=== PATIENT | female | born 1990 | race Caucasian/White ===

== ENCOUNTER 2017-03-14 00:40 | Inpatient (IN) | payer OTHER ==
[2017-03-14] MEDS: DEXTROSE 5%-LACTATED RINGERS 1,000 ML IV SCH (01:00)
[2017-03-14] MEDS: OXYTOCIN 20 UNITS in 0.9% NS 1,000 ML IV SCH (02:15)
--- NOTE | 2017-03-14 02:38 | PN ---
Delivery - Delivery Vaginal Delivery: No Problems Type of Anesthesia: Local Episiotomy/Laceration: 2nd degree EBL (cc): 300 Delivery, Single - Stages of Labor Placenta: Yes: Spontaneous - Condition of Activated Sludge Attendant/Critical Care Registered Nurse Present: No Infant Gender: Female Position: Left, OA - 1 Minute Total Score: 9 5 Minutes Total Score: 9 Remarks - Remarks Remarks: Pt fully dilated and pushing delivered viable female infant from VIOLET cephalic presentation over intact perineum. No nuchal cord. Anterior shoulder and body followed spontaneously and without difficulty. Placenta delivered intact with 3vc. 2nd degree perineal laceration repaired with 2.0 vicryl with excellent hemostasis and gnosticism of anatomy. Fundus firm. Vault empty. Mother stable. Baby to n
--- NOTE | 2017-03-14 02:43 | HP ---
Past Medical History - Admission Chief Complaint: contractions History of Present Illness: 26yo LMP 06/05/16 EDC 03/12/17 by LMP SIUP at 40 2/7 weeks gestation presents with c/o contractions. PNC at [facility] care significant for abnormal pap, s/ p colposcopy and quantiferon positive. Pt B+/RI/RPR NR/Hep BsAg negative/HIV negative/GBS negative. 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: Alzheimer's, CVA, Dementia, Migraine, Multiple Sclerosis, Peripheral Neuropathy, Parkinson's, Seizure, Syncope, TIA, Vertigo, Other Cardiovascular: No: AFIB, Aneurysm, Aortic Insufficiency, Aortic Stenosis, CAD, CHF, Deep Vein Thrombosis, HTN, Hyperlipdemia, IA, Mitral Insufficiency, Mitral Stenosis, Murmur, Pulmonary Hypertension, Other Pulmonary: No: Asthma, Bronchitis, Cancer, COPD, O2 Dependent, Pneumonia, Previously Intubated, Pulmonary Embolus, Pulmonary Fibrosis, Sleep Apnea, Other Gastrointestinal: No: Ascites, Cancer, Constipation, Crohn's Disease, Diverticulitis, Diverticulosis, Esophageal Varices, Gastritis, GERD, GI Bleed, Hemorrhoids, Hiatal Hernia, Inflamatory Bowel Disease, Irritable Bowel Disease, Pancreatitis, Peptic Ulcer Disease, Ulcerative Colitis, Other Hepatobiliary: No: Cirrhosis, Cholelithiasis, Cholecystitis, Choledocholithiasis , Hepatitis A, Hepatitis B, Hepatitis C, Other Renal/: No: Renal Failure, Renal Inusuff, BPH, Cancer, Hematuria, Hemodialysis , Neurogenic Bladder, Renal Calculi, UTI, Other ...: 2 ...Para: 1 ...Term: 1 ...: 0 ...Spon : 0 ...Induced : 0 ...Multiple Gestation: 0 ...LMP: 06/05/16 ... Weeks Gestation by Dates: 40.2 ...EDC by Dates: 03/12/17 ...EDC by Sono: 03/06/17 Heme/Onc: No: Anemia, B12 Deficiency, Bleeding Disorder, Cancer, Current Chemotherapy, Current Radiation Therapy, Hemochromatosis, Hypercoaguable State, Myeloproliferative Synd, Sickle Cell Disease, Sickle Cell Trait, Thrombocytopenia, Other Infectious Disease: No: AIDS, C-Diff, Herpes Zoster, HIV, MRSA, STD's, Tuberculosis, VREF, Other Psych: No: Addictions, Anxiety, Bipolar, Depression, Panic, Psychosis, Schizophrenia, Other Musculoskeletal: No: Bursitis, Chronic low back pain, Hemiparesis, Hemiplegia, Osteoarthritis, Paraplegia, Other Rheumatology: No: Fibromyalgia, Gout, Lupus, Rheumatoid Arthritis, Sarcoidosis, Vasculitis, Other ENT: No: Allergic Rhinitis, Sinusitis, Other - Past Surgical History Past Surgical History: Yes: None Hx Myomectomy: No Hx Transabdominal Cerclage: No - Smoking History Smoking history: Never smoked - Alcohol/Substance Use Hx Alcohol Use: No History of Substance Use: reports: None - Social History ADL: Independent History of Recent Travel: No Home Medications - Allergies Allergies/Adverse Reactions: Allergies Allergy/AdvReac Type Severity Reaction Status Date / Time No Known Allergies Allergy Verified 09/24/11 07:17 - Home Medications Home Medications: Ambulatory Orders Nitrofurantoin Monohyd/M-Cryst [Macrobid -] 100 mg PO BID #14 capsule 03/13/16 Family Disease History - Family Disease History Family History: Denies Review of Systems - Review of Systems Constitutional: reports: No Symptoms Eyes: reports: No Symptoms HENT: reports: No Symptoms Neck: reports: No Symptoms Cardiovascular: reports: No Symptoms Respiratory: reports: No Symptoms Gastrointestinal: reports: No Symptoms Genitourinary: reports: Pain Breasts: reports: No Symptoms Reported Musculoskeletal: reports: No Symptoms Integumentary: reports: No Symptoms Neurological: reports: No Symptoms Endocrine: reports: No Symptoms Hematology/Lymphatic: reports: No Symptoms Psychiatric: reports: No Symptoms Physical Exam - Maternity Constitutional: Yes: Well Nourished Eyes: Yes: WNL HENT: Yes: WNL Neck: Yes: WNL - Abdominal Exam/OB Fundal Height: 40 Number of Fetuses: Single Presentation: Vertex Contractions: Yes Regularity: Regular Intensity: Strong Monitor Mode: External Heart Rate (range): 135 Category: II Accelerations: Uniform Decelerations: Variable - Vaginal Exam/OB Vaginal Bleediing: No Dilatation (cm): 10cm Effacement (%): 100 Amniotic Membrane Status: Ruptured Amniotic Fluid: Yes: Meconium Stained Meconium: Thick Presentation: Vertex/Position Station: +1 - Physical Exam Musculoskeletal: Yes: WNL Extremities: Yes: WNL Psychiatric: Yes: WNL Hemorrhage Risk Assessment - Risk Factors Medium Risk Factors: Yes: None High Risk Factors: Yes: None Risk Score: 1 Risk Level: Medium Risk Problem List - Problems (1) Labor and delivery indication for care or intervention Assessment/Plan: 26yo at 40.2 weeks in active labor admit to labor and delivery pain management as needed anticipate Dr. Mantilla Code(s): O75.9 - COMPLICATION OF LABOR AND DELIVERY, UNSPECIFIED
--- NOTE | 2017-03-14 02:48 | DS ---
Physical Exam-PATHOLOGY SECRETARY/TRANSCRIPTIONIST Constitutional: Yes: Well Nourished, No Distress, Calm Eyes: Yes: WNL, Conjunctiva Clear, EOM Intact HENT: Yes: WNL, Atraumatic, Normocephalic Neck: Yes: WNL, Supple, Trachea Midline Cardiovascular: Yes: WNL, Regular Rate and Rhythm Respiratory: Yes: WNL, Regular, CTA Bilaterally Gastrointestinal: Yes: WNL ...Rectal Exam: Yes: WNL Renal/: Yes: WNL Breast(s): Yes: WNL Musculoskeletal: Yes: WNL Extremities: Yes: WNL Integumentary: Yes: WNL Neurological: Yes: WNL, Alert, Oriented ...Motor Strength: WNL Psychiatric: Yes: WNL, Alert, Oriented Delivery - Delivery Vaginal Delivery: No Problems Type of Anesthesia: Local Episiotomy/Laceration: 2nd degree EBL (cc): 300 Delivery, Single - Stages of Labor Placenta: Yes: Spontaneous - Condition of Infant Radiology Aide/Silk Screen Printer Present: No Gender: Female Position: Left, OA - 1 Minute Total Score: 9 5 Minutes Total Score: 9 Discharge Summary Reason For Visit: LABOR Current Active Problems Labor and delivery indication for care or intervention (Acute) - Home Medications Comprehensive Discharge Medication List: Ambulatory Orders Nitrofurantoin Monohyd/M-Cryst [Macrobid -] 100 mg PO BID #14 capsule 03/13/16
[2017-03-14] MEDS ORDERED: METHYLERGONOVINE MALEATE 0.2 MG/1 ML AMP IM PRN (02:51)
[2017-03-14] MEDS ORDERED: BENZOCAINE 28 GM HEMORRHOIDAL OINTMENT TP PRN (02:51)
[2017-03-14] MEDS ORDERED: BISACODYL 10 MG SUPP.RECT RC PRN (02:51)
[2017-03-14] MEDS ORDERED: oxyCODONE HCL 5 MG TABLET PO PRN (02:51)
[2017-03-14] MEDS ORDERED: WITCH HAZEL 50% (TUCKS) 40 PAD/JAR PAD TP PRN (02:51)
[2017-03-14] MEDS ORDERED: BENZOCAINE 20% 57 GM BOTTLE TP PRN (02:51)
[2017-03-14 03:09] VITALS: BMI 30.9
[2017-03-14 03:58] LABS: BASOPHIL 0.4 % (0-2.0); EOSINOPHIL 1.2 % (0-4.5); MCH 30.4 pg (25.7-33.7); MCHC 33.8 g/dl (32.0-36.0); MEAN PLT VOLUME 7.7 fl (7.5-11.1); NEUTROPHILS 64.3 % (42.8-82.8); PLATELET COUNT 182 K/MM3 (134-434); WHITE BLOOD COUNT 9.9 K/mm3 (4.0-10.0)
[2017-03-14 04:19] LABS: ANION GAP 12 (8-16); CALCIUM 8.2 mg/dL (8.5-10.1); CO2 23 mmol/L (21-32); CREATININE 0.5 mg/dL (0.55-1.02); GLUCOSE,RANDOM 102 mg/dL (74-106)
[2017-03-14] MEDS: IBUPROFEN 600 MG TABLET (FP) PO PRN ×2 (04:38→18:12)
[2017-03-14 04:39] LABS: INR 0.96 (0.82-1.09); PROTHROMBIN TIME (PATIENT) 10.9 SEC (9.98-11.88)
[2017-03-14] MEDS: ACETAMINOPHEN 325 MG TABLET (FP) PO PRN ×2 (04:39→18:13)
[2017-03-14 04:42] LABS: ACTIVATED PTT 22.9 SECONDS (26.9-34.4)
--- NOTE | 2017-03-15 08:26 | PN ---
Progress Note (short form) - Note Progress Note: ppd 1 doing well, no c/o CBC, BMP 03/14/17 03:30 Last Vital Signs Temp Pulse Resp BP Pulse Ox 98.7 F 84 18 117/86 03/14/17 22:12 03/14/17 22:12 03/14/17 22:12 03/14/17 22:12 abdomen soft, no distension, no cva uterus firm lochia mild plan ambulate, cbc, d/c home in am
[2017-03-15 08:39] LABS: BASOPHIL 0.3 % (0-2.0); EOSINOPHIL 1.3 % (0-4.5); MCH 29.5 pg (25.7-33.7); MCHC 33.1 g/dl (32.0-36.0); MEAN CELL VOLUME 89.1 fl (80-96); MEAN PLT VOLUME 7.1 fl (7.5-11.1); NEUTROPHILS 68.8 % (42.8-82.8); PLATELET COUNT 143 K/MM3 (134-434); WHITE BLOOD COUNT 11.3 K/mm3 (4.0-10.0)
[2017-03-15] MEDS: ACETAMINOPHEN 325 MG TABLET (FP) PO PRN (14:27)
[2017-03-15] MEDS: IBUPROFEN 600 MG TABLET (FP) PO PRN (14:27)
[2017-03-15] MEDS: OXYTOCIN 20 UNITS in 0.9% NS 1,000 ML IV SCH (17:36)
[2017-03-15] MEDS: DEXTROSE 5%-LACTATED RINGERS 1,000 ML IV SCH (17:36)
[2017-03-15] MEDS ORDERED: SENNOSIDES/DOCUSATE COMBO (SENNA PLUS) TABLET (UD) PO PRN (22:00)
[2017-03-16 08:34] VITALS: BP 116/68; PULSE 65; TEMP 98.4
--- NOTE | 2017-03-16 09:11 | DS ---
Physical Exam-CLIENT TECHNICAL SUPPORT ASSOCIATE Vital Signs: Vital Signs Temperature 98.4 F 03/16/17 08:32 Pulse Rate 65 03/16/17 08:32 Respiratory Rate 20 03/16/17 08:32 Blood Pressure 116/68 03/16/17 08:32 O2 Sat by Pulse Oximetry (%) Constitutional: Yes: Well Nourished, No Distress, Calm Eyes: Yes: WNL, Conjunctiva Clear, EOM Intact HENT: Yes: WNL, Atraumatic, Normocephalic Neck: Yes: WNL, Supple, Trachea Midline Cardiovascular: Yes: WNL, Regular Rate and Rhythm Respiratory: Yes: WNL, Regular, CTA Bilaterally Gastrointestinal: Yes: WNL ...Rectal Exam: Yes: WNL Renal/: Yes: WNL ....Post : Yes: Uterus firm, Uterus non-tender, Slight lochia rubra Breast(s): Yes: WNL Musculoskeletal: Yes: WNL Extremities: Yes: WNL Integumentary: Yes: WNL Neurological: Yes: WNL, Alert, Oriented ...Motor Strength: WNL Psychiatric: Yes: WNL, Alert, Oriented Labs: CBC, BMP 03/15/17 07:00 03/14/17 03:30 Delivery - Delivery Vaginal Delivery: No Problems, Spontaneous Type of Anesthesia: Local Episiotomy/Laceration: 2nd degree EBL (cc): 300 Delivery, Single - Stages of Labor Date 1st Stage Initiatied: 03/13/17 Time 1st Stage Initiated: 23:45 Date 2nd Stage Initiated: 03/14/17 Time 2nd Stage Initiated: 01:45 Date of Delivery: 03/14/17 Time of Delivery: 02:03 Time Placenta Delivered: 02:10 Placenta: Yes: Spontaneous - Condition of Infant Waste Paper Hammermill Operator/Basketball Player Present: No Gender: Female Weight: 6 lb 15 oz Position: Left, OA Total Hours ROM (Hrs/Mins): 33MIN - 1 Minute Total Score: 9 5 Minutes Total Score: 9 - Delta Feeding Plan Initial Plan: Exclusive throughout hospitalization Discharge Summary Reason For Visit: LABOR Current Active Problems Labor and delivery indication for care or intervention (Acute) Procedures: Principal: Condition: Good - Instructions Diet, Activity, Other Instructions: regular diet, follow up [facility] care 4 weeks call [facility] for appointment. [phone] Referrals: Devorah Mantilla MD [Staff Physician] - Disposition: HOME - Home Medications Comprehensive Discharge Medication List: Ambulatory Orders Ibuprofen [Motrin -] 600 mg PO QID #28 tablet 03/14/17 Vit/Iron Fumarate/FA [ Tablet] 1 tab PO DAILY 03/14/17
[2017-03-16] MEDS: IBUPROFEN 600 MG TABLET (FP) PO PRN (09:22)
[2017-03-16] MEDS: ACETAMINOPHEN 325 MG TABLET (FP) PO PRN (09:22)
[2017-03-16] MEDS: DEXTROSE 5%-LACTATED RINGERS 1,000 ML IV SCH (09:25)
[2017-03-16] MEDS: OXYTOCIN 20 UNITS in 0.9% NS 1,000 ML IV SCH (09:25)
== END 2017-03-16 11:40 | disposition home or self-care (01) | DRG 560 ==
LOC: JLDR 00:40 → J3W 04:15
PROVIDERS: ADMIT Obstetrics & Gynecology; ATTEND Obstetrics & Gynecology
PROC: 10E0XZZ Delivery of Products of Conception, External Approach (ICD-10-PCS; principal; 2017-03-14)
PROC: 0KQM0ZZ Repair Perineum Muscle, Open Approach (ICD-10-PCS; 2017-03-14)
DX: O48.0 Post-term pregnancy (principal); O70.1 Second degree perineal laceration during delivery; Z3A.40 40 weeks gestation of pregnancy; Z37.0 Single live birth
CPT/HCPCS: 36415; 59409; 71010-TC; 80048; 85025; 85610; 85730; 86593; 86850; 86900; 86901

== ENCOUNTER 2019-07-08 08:56 | Emergency (ER) | payer OTHER ==
[2019-07-08 09:14] VITALS: BP 109/71; PULSE 73; TEMP 98; BMI 25.4
--- NOTE | 2019-07-08 10:13 | PDOC ---
History of Present Illness - General Chief Complaint: Respiratory Stated Complaint: CONGESTED/SOB Time Seen by Provider: 07/08/19 09:55 History Source: Patient - History of Present Illness Timing/Duration: reports: yesterday Associated Symptoms: reports: cough, fever/chills. denies: shortness of breath Past History - Past Medical History Allergies/Adverse Reactions: Allergies Allergy/AdvReac Type Severity Reaction Status Date / Time No Known Allergies Allergy Verified 07/08/19 09:14 Home Medications: Ambulatory Orders Ibuprofen [Motrin -] 600 mg PO QID #28 tablet 03/14/17 Vit/Iron Fum/Folic AC [ Tablet] 1 tab PO DAILY 03/14/17 Asthma: No Cancer: No Cardiac Disorders: No COPD: No Diabetes: No HTN: No Seizures: No Thyroid Disease: No - Psycho Social/Smoking Cessation Hx Smoking History: Never smoked Have you smoked in the past 12 months: No Hx Alcohol Use: No Drug/Substance Use Hx: No Substance Use Type: None Hx Substance Use Treatment: No Review of Systems - Review of Systems Constitutional: Yes: Fever Respiratory: Yes: Cough. No: Shortness of Breath, Wheezing *Physical Exam - Vital Signs Last Vital Signs Temp Pulse Resp BP Pulse Ox 98.0 F 73 16 109/71 96 07/08/19 09:12 07/08/19 09:12 07/08/19 09:12 07/08/19 09:12 07/08/19 09:12 - Physical Exam General Appearance: Yes: Appropriately Dressed. No: Apparent Distress HEENT: positive: Normal ENT Inspection, Normal Voice, TMs Normal, Pharynx Normal. negative: Scleral Icterus (R), Scleral Icterus (L) Neck: positive: Supple. negative: Lymphadenopathy (R), Lymphadenopathy (L) Respiratory/Chest: positive: Lungs Clear, Normal Breath Sounds. negative: Respiratory Distress Cardiovascular: positive: Regular Rate, S1, S2 Integumentary: positive: Dry, Warm Neurologic: positive: Fully Oriented, Alert, Normal Mood/Affect Heart Score/ECG Review - ECG Intrepretation Comment:: 07/08/19 10:14 Twelve-lead EKG was performed and reviewed by me. There is normal sinus rhythm with a normal rate. The axis is normal. The intervals are normal. There are no ST or T wave abnormalities. Impression: Normal twelve-lead EKG Medical Decision Making - Medical Decision Making 07/08/19 10:13 28-year-old female ,no significant history, here with URI symptoms with cough and subjective fever. At some point started having some chest tightness with cough. No hemoptysis, shortness of breath. No history of pneumonia. No tobacco use see exam URI w/ pleuritic CP Exam wnl EKG done from triage and unremarkable Dc w/ supportive tc Discharge - Discharge Information Problems reviewed: Yes Clinical Impression/Diagnosis: URI (upper respiratory infection) Qualifiers: URI type: unspecified viral URI Qualified Code(s): J06.9 - Acute upper respiratory infection, unspecified Condition: Good Disposition: HOME - Follow up/Referral Referrals: Phan Carrasco MD [Primary Care Provider] - - Patient Discharge Instructions Patient Printed Discharge Instructions: DI for Viral Upper Respiratory Infection -- Adult - Post Discharge Activity Work/Back to School Note: Back to Work
--- NOTE | 2019-07-08 13:22 | EKG ---
Test Reason : Blood Pressure : / mmHG Vent. Rate : 072 BPM Atrial Rate : 072 BPM P-R Int : 152 ms QRS Dur : 064 ms QT Int : 382 ms P-R-T Axes : 056 065 036 degrees QTc Int : 418 ms NORMAL SINUS RHYTHM WITH SINUS ARRHYTHMIA POSSIBLE LEFT ATRIAL ENLARGEMENT BORDERLINE ECG NO PREVIOUS ECGS AVAILABLE Confirmed by MD Feliciano, Phan ([id number]) on 07/08/2019 1:22:05 PM Referred By: Confirmed By:Phan Wiggins MD
== END 2019-07-08 10:19 | disposition home or self-care (01) ==
LOC: JERFT 08:56 → JER 08:56 → JERFT 10:19
DX: J06.9 Acute upper respiratory infection, unspecified (principal)
CPT/HCPCS: 93005; 93010; 99283-25

== ENCOUNTER 2020-01-18 22:01 | Emergency (ER) | payer OTHER ==
[2020-01-18 22:07] VITALS: BP 112/74; PULSE 94; TEMP 98.7; BMI 25.4
--- NOTE | 2020-01-18 23:17 | PDOC ---
*Physical Exam - Vital Signs Last Vital Signs Temp Pulse Resp BP Pulse Ox 98.7 F 94 H 18 112/74 99 01/18/20 22:03 01/18/20 22:03 01/18/20 22:03 01/18/20 22:03 01/18/20 22:03 Medical Decision Making - Medical Decision Making 01/18/20 23:17 Patient seen by the advanced practice provider under my supervision. Ancillary testing reviewed as necessary. I agree with plan as outlined by the advanced practice provider. Discharge - Discharge Information Problems reviewed: Yes Clinical Impression/Diagnosis: Pelvic pain Condition: Fair Disposition: ELOPED - Follow up/Referral Referrals: Denisse Obrien MD [Primary Care Provider] - - Patient Discharge Instructions - Post Discharge Activity
[2020-01-18] MEDS ORDERED: ACETAMINOPHEN 500 MG TABLET (FP) PO ONE (23:26)
--- NOTE | 2020-01-18 23:40 | PDOC ---
History of Present Illness - General Chief Complaint: Pain Stated Complaint: ABDOMINAL PAIN Time Seen by Provider: 01/18/20 23:01 History Source: Patient Exam Limitations: No Limitations - History of Present Illness Travel History: No Initial Comments: 01/18/20 23:38 HISTORY OF PRESENT ILLNESS: 29-year-old woman denies medical history presents emergency department for evaluation of left-sided pelvic pain radiating to her back. Patient reports he occasionally gets pain like this but this pain has lasted longer and has been more intense. Patient reports when she gets this pain she occasionally has vaginal discharge but denies at present. Patient's last menstrual period was approximately 2 weeks ago. Patient reports she is having unprotected intercourse with 1 male partner and is using a IUD for control. Patient is unsure if this is hormonal or copper IUD. She reports she does not use barrier protection as she is in a monogamous relationship. Patient denies any dysuria, hematuria, rectal bleeding, constipation or diarrhea. She denies dyspareunia. No recent travel or sick contacts. PAST MEDICAL HISTORY: Denies past medical history SURGICAL HISTORY: Denies ALLERGIES: No known drug allergies REVIEW OF SYSTEMS General/Constitutional: Denies fever or chills. Denies weakness, weight change. HEENT: Denies change in vision. Denies ear pain or discharge. Denies sore throat. Cardiovascular: Denies chest pain or shortness of breath. Respiratory: Denies cough, wheezing, or hemoptysis. Gastrointestinal: See HPI Genitourinary: Denies dysuria, frequency, or change in urination. Musculoskeletal: Denies joint or muscle swelling or pain. Denies neck or back pain. Skin and breasts: Denies rash or easy bruising. Neurologic: Denies headache, vertigo, loss of consciousness, or loss of sensation. Psychiatric: Denies depression or anxiety. Endocrine: Denies increased thirst. Denies abnormal weight change. Hematologic/Lymphatic: Denies anemia, easy bleeding, or history of blood clots. Allergic/Immunologic: Denies hives or skin allergy. Denies latex allergy. PHYSICAL EXAM General Appearance: Well-appearing, appropriately dressed. No apparent distress, no intoxication. Gastrointestinal/Abdominal: Normal bowel sounds. Abdomen soft, non-distended. No tenderness or rebound tenderness. No organomegaly, pulsatile mass, guarding, hernia, hepatomegaly, splenomegaly. Neurologic: financial sales consultant II-XII intact. Fully oriented, alert. Appropriate mood/affect. Motor strength 5/5. No appreciable EOM palsy, facial droop or sensory deficit. Past History - Medical History Allergies/Adverse Reactions: Allergies Allergy/AdvReac Type Severity Reaction Status Date / Time No Known Allergies Allergy Verified 01/18/20 22:06 Home Medications: Ambulatory Orders Ibuprofen [Motrin -] 600 mg PO QID #28 tablet 03/14/17 Vit/Iron Fum/Folic AC [ Tablet] 1 tab PO DAILY 03/14/17 Asthma: No Cancer: No Cardiac Disorders: No COPD: No Diabetes: No HTN: No Seizures: No Thyroid Disease: No - Reproductive History Is Patient Now?: No - Psycho-Social/Smoking History Smoking History: Never smoked Have you smoked in the past 12 months: No - Substance Abuse Hx (Audit-C & DAST Scrn) How often the patient has a drink containing alcohol: Never Score: In Men: 4 or > Positive; In Women: 3 or > Positive: 0 Screen Result (Pos requires Nsg. Audit-10AR): Negative In the last yr the pt used illegal drug/Rx for NonMed reason: No Score: Yes response is considered Positive: 0 Screen Result (Positive result requires Nsg. DAST-10): Negative *Physical Exam - Vital Signs Last Vital Signs Temp Pulse Resp BP Pulse Ox 98.7 F 94 H 18 112/74 99 01/18/20 22:03 01/18/20 22:03 01/18/20 22:03 01/18/20 22:03 01/18/20 22:03 ED Treatment Course - RADIOLOGY Radiology Studies Ordered: Category Date Time Status TRANSVAGINAL ULTRASOUND US [US] Stat Ultrasound 01/18/20 23:26 Ordered Medical Decision Making - Medical Decision Making 01/18/20 23:40 A/P: 29-year-old woman with left pelvic pain since this morning Exquisite tenderness in the left adnexa. No masses present. Labs Urinalysis, urine culture, urine , urine GC Transvaginal ultrasound Tylenol 975 mg orally now Reassess 01/19/20 00:28 Multiple attempts to find patient to bring to ultrasound were unsuccessful. Patient not found in ultrasound, waiting room, emergency department evaluation areas. No IV in place. Discharge - Discharge Information Problems reviewed: Yes Clinical Impression/Diagnosis: Pelvic pain Condition: Fair Disposition: ELOPED - Follow up/Referral Referrals: Denisse Obrien MD [Primary Care Provider] - - Patient Discharge Instructions - Post Discharge Activity
[2020-01-18] MEDS ORDERED: ACETAMINOPHEN 325 MG TABLET (FP) ONE (23:57)
== END 2020-01-19 00:30 | disposition left against medical advice (07) ==
LOC: JER 22:01
DX: R10.2 Pelvic and perineal pain (principal)
CPT/HCPCS: 99284-25

== ENCOUNTER 2022-03-30 19:16 | Emergency (ER) | payer OTHER ==
[2022-03-30 20:00] VITALS: RESP 20; BMI 23.4
[2022-03-30] MEDS ORDERED: ACETAMINOPHEN 325 MG TABLET (FP) PO ONE (20:42)
[2022-03-30] MEDS ORDERED: ACETAMINOPHEN 325 MG TABLET (FP) ONE (20:44)
[2022-03-30 21:16] LABS: EPI CELLS 5 /uL (0-25.1); HYALINE CASTS 0 /uL (0-3.1); PH,URINE 6.5 (5.0-8.0); URINE APPEARANCE CLEAR; URINE BACTERIA 26 /uL (0-1359); URINE BILIRUBIN NEGATIVE (NEGATIVE); URINE COLOR YELLOW; URINE GLUCOSE (UA) NEGATIVE (NEGATIVE); URINE KETONE NEGATIVE (NEGATIVE); URINE LEUK ESTERASE NEGATIVE (NEGATIVE); URINE NITRITE NEGATIVE (NEGATIVE); URINE PROTEIN NEGATIVE (NEGATIVE); URINE RBC 9 /uL (0-23.9); URINE UROBILINOGEN 0.2 mg/dL (0.2-1.0); URINE WBC 3 /uL (0-25.8)
[2022-03-30 21:17] LABS: HCG,QUALITATIVE URINE Negative
[2022-03-30] MEDS ORDERED: SODIUM CHLORIDE 1,000 ML IV ONE (21:42)
[2022-03-30 22:36] LABS: BASO % 0.4 % (0-2.0); EOS % 0.1 % (0-4.5); HEMATOCRIT 33.6 % (32.4-45.2); HEMOGLOBIN 11.9 GM/dL (10.7-15.3); LYMPH % 15.6 % (8-40); MCH 31.1 pg (25.7-33.7); MCHC 35.4 g/dl (32.0-36.0); MEAN CELL VOLUME 87.8 fl (80-96); MONO % 11.6 % (3.8-10.2); NEUT % 72.3 % (42.8-82.8); PLATELET COUNT 218 10^3/uL (134-434); RBC 3.82 M/mm3 (3.60-5.2); RDW 13.2 % (11.6-15.6); WHITE BLOOD COUNT 9.9 K/mm3 (4.0-10.0)
[2022-03-30 22:46] VITALS: BP 99/58; PULSE 94; TEMP 99.4
[2022-03-30 22:51] LABS: CALCIUM 9.1 mg/dL (8.5-10.1)
[2022-03-30 22:52] LABS: BLOOD UREA NITROGEN 7.1 mg/dL (7-18)
[2022-03-30 22:55] LABS: CREATININE 0.6 mg/dL (0.55-1.3)
[2022-03-30 22:56] LABS: BILIRUBIN,TOTAL 0.8 mg/dL (0.2-1); TOT PROT 7.6 g/dl (6.4-8.2)
== END 2022-03-30 23:10 | disposition home or self-care (01) ==
LOC: JER 19:16
DX: U07.1 COVID-19 (principal)
CPT/HCPCS: 0241U-QW; 36415; 80053; 81003; 84703; 85025; 87086; 87186; 99283-25

== ENCOUNTER 2022-10-12 19:02 | Emergency (ER) | payer OTHER ==
[2022-10-12 19:07] VITALS: BP 114/80; PULSE 85; RESP 17; TEMP 98.4; BMI 22.6
[2022-10-12] MEDS ORDERED: IBUPROFEN 600 MG TABLET (FP) PO ONE ×2 (19:26→19:29)
[2022-10-12] MEDS ORDERED: ACETAMINOPHEN 325 MG TABLET (FP) PO ONE (19:26)
[2022-10-12] MEDS ORDERED: ACETAMINOPHEN 325 MG TABLET (FP) ONE (19:29)
[2022-10-12 20:34] LABS: THROAT:GRP A STREP NOT DETECTED (NOTDETECTED)
[2022-10-12 20:59] LABS: URINE APPEARANCE CLEAR; URINE BILIRUBIN NEGATIVE (NEGATIVE); URINE COLOR YELLOW; URINE GLUCOSE (UA) NEGATIVE (NEGATIVE); URINE KETONE 1+ (NEGATIVE); URINE LEUK ESTERASE NEGATIVE (NEGATIVE); URINE NITRITE NEGATIVE (NEGATIVE); URINE PROTEIN NEGATIVE (NEGATIVE); URINE UROBILINOGEN 0.2 mg/dL (0.2-1.0)
[2022-10-12 21:25] LABS: HCG,QUALITATIVE URINE Negative
== END 2022-10-12 22:04 | disposition home or self-care (01) ==
LOC: JERFT 19:02
DX: R10.32 Left lower quadrant pain (principal); R07.89 Other chest pain; R53.83 Other fatigue; R22.1 Localized swelling, mass and lump, neck; M79.10 Myalgia, unspecified site; B34.9 Viral infection, unspecified; Z20.822 Contact with and (suspected) exposure to COVID-19
CPT/HCPCS: 0241U-QW; 71046-TC-FY; 81003; 84703; 87651; 99285-25